=== PATIENT | female | born 1995 | race Asian ===

== ENCOUNTER 2019-04-28 18:42 | Emergency (ER) | payer OTHER ==
[~2019-04-28] VITALS: Ht 165.1 cm; Wt 52.6 kg
[2019-04-28 19:10] VITALS: BP 101/65
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
== END 2019-04-28 20:54 | disposition home or self-care (01) ==
LOC: ER 18:42
DX: O9A.212 Injury, poisoning and certain other consequences of external causes complicating pregnancy, second trimester (principal); M54.5 Low back pain; Z3A.19 19 weeks gestation of pregnancy; V43.62XA Car passenger injured in collision with other type car in traffic accident, initial encounter; Y93.89 Activity, other specified; Y92.410 Unspecified street and highway as the place of occurrence of the external cause; Y99.8 Other external cause status
CPT/HCPCS: 99281